=== PATIENT | female | born 1955 | race Caucasian/White ===

== ENCOUNTER 2017-10-27 10:12 | Emergency (ER) | payer BC, MEDICARE ==
[~2017-10-27] VITALS: Ht 162.6 cm; Wt 90.7 kg
[2017-10-27] MEDS ORDERED: MORPHINE SULFATE INJ 10 MG/ML IM ONE (10:30)
[2017-10-27] MEDS ORDERED: ONDANSETRON HCL 4 MG ORAL DISINTEGRATING TAB PO ONE (10:30)
[2017-10-27] MEDS ORDERED: HYDROMORPHONE 2MG/ML INJ IM ONE (11:30)
[2017-10-27] MEDS ORDERED: HYDROMORPHONE 2MG/ML INJ IV ONE (11:30)
[2017-10-27] MEDS ORDERED: PROMETHAZINE HCL (IM) 25 MG/ML VIAL IM ONE ×2 (11:45→12:30)
--- NOTE | 2017-10-27 11:50 | Diagnostic Imaging Report ---
EXAMINATION: CT of the lumbar spine and sacrococcyx HISTORY:Status post fall, trauma, pain COMPARISON:Abdomen CT on 03/07/2017 TECHNIQUE: Multidetector helical axial images were obtained without contrast from L1 to S1. The images were reconstructed using bone and soft tissue algorithms and were viewed in axial, sagittal, and coronal planes. FINDINGS: Transitional lumbosacral vertebra, for the purposes of the quadrant examination will be considered as a lumbarized S1 with a rudimentary S1-S2 disc. Alignment:Normal lumbar lordosis. Minimal retrolisthesis at L2-L3. Vertebral bodies:Minimal chronic anterior wedging of the L1 vertebral body. Chronic endplate degenerative changes at L5-S1. Paraspinal soft tissues: Again seen subcutaneous stimulator device in the right buttock. Intervertebral disks: L1-L2: Normal. L2-L3: Mild symmetric disc for which a catheter traverses, mild bilateral foraminal stenoses. L3-L4: Normal. L4-L5: Mild symmetric disc bulge and facet arthrosis. Minimal canal and foramina narrowing. L5-S1: Decreased disc height, symmetric disc bulge, ligamenta flava thickening and facet arthroses. Moderate bilateral foraminal stenoses. Sacrococcyx: -No acute displaced fractures. -Prominent distal angulation of the coccyx. - Minimal widening between the first and second coccygeal segments, may represent age-indeterminate minimal subluxation. IMPRESSION: 1. No acute lumbar or sacrococcygeal displaced fractures. 2. Possible minimal age-indeterminate subluxation of the first/second coccygeal segments as detail above. 3. Moderate degenerative and chronic foraminal stenosis at L5-S1. Signed by: Dr. Kristan Orosco M.D. on 10/27/2017 11:47 AM
[2017-10-27 12:39] VITALS: BP 141/91
[2017-10-27] MEDS ORDERED: ALBUTEROL0.63 MG/3 INH (16:48)
[2017-10-27] MEDS ORDERED: ALPHAGAN P5 ML OP (16:49)
[2017-10-27] MEDS ORDERED: RANITIDINE HCL150 M1 PO (16:49)
[2017-10-27] MEDS ORDERED: LATANOPROST2.5 ML OP (16:49)
[2017-10-27] MEDS ORDERED: OMEPRAZOLE40 MG PO (16:49)
[2017-10-27] MEDS ORDERED: SYNTHROID125 MCG PO (16:50)
== END 2017-10-27 13:05 | disposition home or self-care (01) ==
LOC: ER 10:12
DX: M54.5 Low back pain (principal); G89.11 Acute pain due to trauma; S30.0XXA Contusion of lower back and pelvis, initial encounter; M51.26 Other intervertebral disc displacement, lumbar region; W01.0XXA Fall on same level from slipping, tripping and stumbling without subsequent striking against object, initial encounter; Y93.01 Activity, walking, marching and hiking; Y92.238 Other place in hospital as the place of occurrence of the external cause
CPT/HCPCS: 72131; 72192; 99284; J1170; J2550

== ENCOUNTER 2017-10-31 06:18 | Observation (INO) | payer MEDICARE ==
[~2017-10-31] VITALS: Ht 162.6 cm; Wt 90.3 kg
[~2017-10-31 06:18] MED LIST: ALBUTEROL0.63 MG/3 INH; ALPHAGAN P5 ML OP; LATANOPROST2.5 ML OP; OMEPRAZOLE40 MG PO; RANITIDINE HCL150 M1 PO; SYNTHROID125 MCG PO
[2017-10-31] MEDS ORDERED: CEFAZOLIN SOD 1 GM VIAL ONE (06:31)
[2017-10-31] MEDS ORDERED: BUPIVACAINE HCL 0.5% INJ 30 ML VIAL INJ ONE (06:59)
[2017-10-31] MEDS ORDERED: MUPIROCIN 2% OINT 22 GM TUBE ONE (06:59)
[2017-10-31] MEDS ORDERED: SCOPOLAMINE 1.5 MG PATCH ONE (07:53)
[2017-10-31] MEDS ORDERED: CITRIC ACID/SODIUM CITRATE 30 ML UDC PO ONE (08:00)
[2017-10-31] MEDS ORDERED: PROMETHAZINE HCL (IM) 25 MG/ML VIAL INJ PRN (09:00)
[2017-10-31] MEDS ORDERED: SODIUM CHLORIDE 0.9% 1000ML 1,000 ML IV SCH (09:00)
[2017-10-31] MEDS ORDERED: ZOLPIDEM TARTRATE 5 MG TAB PO PRN (09:00)
[2017-10-31] MEDS ORDERED: HYDROCODONE/APAP 5MG-325MG TAB PO PRN (09:00)
[2017-10-31] MEDS ORDERED: DIPHENHYDRAMINE HCL INJ 50 MG/ML VIAL IM/IV PRN (09:00)
[2017-10-31] MEDS ORDERED: ACETAMINOPHEN 650 MG SUPP PR PRN (09:00)
[2017-10-31] MEDS: CELECOXIB 100 MG CAP PO SCH ×2 (09:00→17:00)
[2017-10-31] MEDS ORDERED: DOCUSATE SODIUM 100 MG CAP PO PRN (09:00)
[2017-10-31] MEDS ORDERED: ONDANSETRON HCL INJ 2 MG/ML VIAL IV PRN (09:00)
[2017-10-31] MEDS ORDERED: FENTANYL CITRATE/PF 100MCG/2 ML INJ ONE ×2 (09:24→18:11)
[2017-10-31] MEDS: ASPIRIN 325 MG TAB PO SCH ×2 (10:00→17:00)
[2017-10-31] MEDS: KETOROLAC TROMETHAMINE 30 MG/ML VIAL IV PRN (10:09)
--- NOTE | 2017-10-31 10:35 | Operative Report ---
DATE OF PROCEDURE: October 31, 2017 MARKET RESEARCH SENIOR PROJECT MANAGER: Ge Lucero PA-C The patient was brought to the operating room for induction of anesthesia. Throughout this case, my PA's assistance was necessary for retraction of soft tissue and positioning of the extremity. This allows for efficient and technically successful execution of the operation and is considered medically necessary. PREOPERATIVE DIAGNOSIS: Bicondylar right tibial plateau fracture. POSTOPERATIVE DIAGNOSIS: Bicondylar right tibial plateau fracture. PROCEDURE: Open reduction and internal fixation, right bicondylar tibial plateau fracture. INDICATIONS: The patient is a 62-year-old lady who fell off of a ladder. She sustained a bicondylar tibial plateau fracture. There is minimal displacement, but the fracture is considered unstable. The findings and options have been discussed. We plan on open reduction with internal fixation. The risks and benefits were explained. She stated she understood and wished to proceed. DESCRIPTION OF PROCEDURE: The patient was brought into the operating room and placed under general anesthetic. She received prophylactic antibiotics in the holding area. Her right lower extremity was prepped and draped in a sterile manner. A preoperative time out was performed. The extremity was exsanguinated, and a proximal tourniquet was inflated to 300 mmHg. A curvilinear incision was made over the proximal right leg along the line of the tibial spine and extending back towards Gerdy tubercle. The anterior compartment muscles were elevated off of the bone. The fracture lines were identified. A [employer] precontoured periarticular plate was positioned on the proximal tibia. Good position was confirmed with a C-arm image intensifier. The fracture was well reduced. The plate was affixed to the bone with a combination of compression and locking screws. Intraoperative x-rays confirmed anatomic reduction and good positioning of the hardware. The wound was thoroughly irrigated. The anterior compartment fascia was reapproximated using #0 Vicryl. The skin was closed with subcuticular Vicryl and torie. A sterile bandage and a hinged knee brace were applied. The patient was extubated and transported to the recovery room in stable condition. Blood loss was less than 50 mL, and all needle and sponge counts were correct. Job#: [id number]
[2017-10-31 11:30] VITALS: BP 165/77
[2017-10-31] MEDS: ACETAMINOPHEN 1000 MG/100 ML IV SCH ×2 (12:00→18:00)
[2017-10-31 12:30] VITALS: BP 154/85
[2017-10-31] MEDS: CEFAZOLIN SOD 1 GM/D5W 50ML 50 ML IV SCH ×2 (13:42→22:18)
[2017-10-31] MEDS ORDERED: METOCLOPRAMIDE HCL 10 MG/2ML VIAL ONE (17:51)
[2017-10-31] MEDS ORDERED: LIDOCAINE HCL 2% LOCAL INJ 5 ML SDV VIAL INJ ONE (17:51)
[2017-10-31] MEDS ORDERED: ONDANSETRON HCL INJ 2 MG/ML VIAL ONE (17:51)
[2017-10-31] MEDS ORDERED: DEXAMETHASONE SOD PHOS INJ 4 MG/ML VIAL ONE (17:51)
[2017-10-31] MEDS ORDERED: PROPOFOL IV EMULSION 10 MG/ML 20 ML VIAL ONE (17:51)
[2017-10-31] MEDS ORDERED: SEVOFLURANE INHAL SOLN 250 ML PEN BTL ONE (17:51)
[2017-10-31] MEDS ORDERED: MORPHINE SULFATE INJ 10 MG/ML ONE (18:11)
[2017-10-31] MEDS ORDERED: MIDAZOLAM HCL 2 MG/2 ML VIAL ONE (18:11)
[2017-10-31 18:37] VITALS: BP 126/67
[2017-10-31 18:39] VITALS: BP 154/85
[2017-10-31 20:00] VITALS: BP 118/66
[2017-10-31] MEDS: HYDROCODONE/APAP 7.5MG-325MG 1 EA TAB PO PRN (22:24)
[2017-11-01] VITALS: BP 132/66
--- NOTE | 2017-11-01 00:30 | Consultation ---
DATE OF CONSULTATION: October 31, 2017 REASON FOR CONSULTATION: Medical management. HISTORY OF PRESENT ILLNESS: This is a 62-year-old white woman who underwent successful right tibial plateau open reduction and internal fixation to repair a traumatic fracture. The patient states that on Saturday, October 21, 2017, she suffered a mechanical fall off a step ladder in which all of her weight landed on her right lower extremity. The patient subsequently was found to have a right tibial plateau fracture. The patient also sustained a repeat fall on October 27, 2017 that did not result in any further fractures but x-rays did reveal moderate degenerative and chronic foraminal stenosis at L5-S1, and CT of the lumbar spine without contrast did reveal moderate degeneration and chronic foraminal stenosis at L5-S1. The patient states that her pain is currently well controlled. REVIEW OF SYSTEMS: GENERAL: Weight has been stable. No fever or chills. HEENT: No headaches; no visual changes. CARDIOVASCULAR: No chest pain, no shortness of breath, no cough. GI: No nausea, vomiting, diarrhea or constipation, but she has severe GERD. : She has urinary incontinence issues. NEUROMUSCULAR: No limb weakness or numbness. She states pain in her right lower leg is well controlled, but she does complain of pain in her lower back and right hip area. PAST MEDICAL HISTORY: 1. Obesity, BMI 36. 2. Macular degeneration. 3. Glaucoma. 4. Severe GERD. 5. Hypothyroidism. 6. Overactive bladder. ALLERGIES: CODEINE CAUSES ITCHING. MEDICATIONS: 1. Omeprazole 40 mg a day. 2. Ranitidine 150 mg b.i.d. 3. Synthroid 125 mcg daily. 4. Eye drops for glaucoma. SOCIAL HISTORY: She is and lives with her . She is currently a retired hairdresser. Does not smoke tobacco. The patient drinks alcohol rarely. FAMILY HISTORY: Father suffered from alcoholism. Mother has congestive heart failure and COPD. PAST SURGICAL HISTORY: 1. Right tibial plateau open reduction and internal fixation on October 31, 2017. 2. Open cholecystectomy. 3. Gastric bypass in 1993 for gastric resection because of recurrent ulcers. 4. Exploratory laparotomy to repair abdominal wall hernia. 5. Repeat exploratory laparotomy because of an infected surgical incision wound. 6. section. 7. Hysterectomy because of uterine cancer. 8. Partial thyroidectomy twice. 9. Cervical spine surgery. 10. Bilateral carpal tunnel surgery. PHYSICAL EXAMINATION GENERAL: She is awake, alert, fully oriented. She is pleasant and cooperative with exam. VITAL SIGNS: Height 5 feet 2 1/2 inches, weight 200 pounds. BMI 36. Blood pressure 129/93. Pulse 72. Respiratory rate 18. Oxygen saturation 96% on room air. Temperature 98.0. INTEGUMENT: Skin is warm and dry. No pallor, jaundice, diaphoresis. HEENT: Anicteric sclerae with moist mucous membranes. NECK: Supple. CARDIOVASCULAR: Regular rate and rhythm. LUNGS: No rales and no rhonchi. ABDOMEN: Obese yet benign. The patient has extensive surgical incisional scarring on her abdomen. She appears to have an abdominal wall hernia at this time that is reducible. EXTREMITIES: The patient has a brace on her right lower extremity. No edema on the lower legs. NEUROLOGIC: Intact. No gross focal deficit appreciated. DIAGNOSES 1. Status post right tibial plateau open reduction and internal fixation to repair fracture. 2. Obesity. BMI of 36. 3. Hypothyroidism. 4. Gastroesophageal reflux disease. PLAN: 1. Will continue proton pump inhibitor and H2 precious for the patient's gastroesophageal reflux disease. 2. Continue Synthroid. 3. Discontinue intravenous fluids. 4. Encourage hourly incentive spirometry use from 7 a.m. to 7 p.m. 5. Mobilize with therapy. 6. Pain control. I would like to thank Dr. Patterson for this generous consult. I spent 45 minutes in the care of this patient. Job#: [id number] GH MTDD
[2017-11-01] MEDS: ACETAMINOPHEN 1000 MG/100 ML IV SCH ×2 (01:00→05:30)
[2017-11-01 04:00] VITALS: BP 146/67
[2017-11-01 05:18] LABS: BASOPHILS % 0.3 % (0.0-1.0); EOSINOPHILS % 0.3 % (0.0-6.0); LYMPHOCYTES % 21.1 % (18.0-39.1); MEAN CORPUSCULAR HEMOGLOBIN 29.7 pg (28-32); MEAN CORPUSCULAR HGB CONC 34.2 g/dL (31-35); MEAN CORPUSCULAR VOLUME 86.8 fL (81-99); MONOCYTES # (AUTO) 0.7 (0.2-0.8); MONOCYTES % 7.3 % (4.4-11.3); NEUTROPHILS # (AUTO) 6.6 (2.1-6.9); NEUTROPHILS % 70.7 % (38.7-80.0); PLATELET COUNT 341 x10e3/uL (140-360); RED BLOOD COUNT 4.38 x10e6/uL (3.6-5.1)
[2017-11-01] MEDS: CEFAZOLIN SOD 1 GM/D5W 50ML 50 ML IV SCH (05:45)
[2017-11-01 05:49] LABS: ALANINE AMINOTRANSFERASE 83 IU/L (0-55); ALBUMIN 3.2 g/dL (3.5-5.0); ALBUMIN/GLOBULIN RATIO 0.9 (0.8-2.0); ALKALINE PHOSPHATASE 184 IU/L (40-150); ANION GAP 13.6 mmol/L (8-16); BLOOD UREA NITROGEN 15 mg/dL (7-26); BUN/CREATININE RATIO 17 (6-25); CARBON DIOXIDE 26 mmol/L (22-29); CHLORIDE 109 mmol/L (98-107); EST GLOMERULAR FILTRATION RATE > 60 ML/MIN (60-); GLUCOSE 102 mg/dL (74-118); POTASSIUM 4.6 mmol/L (3.5-5.1); SODIUM 144 mmol/L (136-145)
[2017-11-01] MEDS: KETOROLAC TROMETHAMINE 30 MG/ML VIAL IV PRN (05:57)
[2017-11-01 08:12] VITALS: BP 127/60
[2017-11-01] MEDS ORDERED: ACETAMINOPHEN 1000 MG/100 ML IV PRN (09:00)
[2017-11-01] MEDS: ASPIRIN 325 MG TAB PO SCH (09:00)
[2017-11-01 12:11] VITALS: BP 148/70
[2017-11-01] MEDS: HYDROCODONE/APAP 7.5MG-325MG 1 EA TAB PO PRN (12:24)
[2017-11-01] MEDS ORDERED: CELECOXIB 200 MG CAP PO SCH (17:00)
== END 2017-11-01 14:07 | disposition home or self-care (01) ==
LOC: OR 06:18 → PACU V 09:04 → MED/SURG 09:39
PROVIDERS: ADMIT Specialist; ATTEND Specialist
DX: S82.141A Displaced bicondylar fracture of right tibia, initial encounter for closed fracture (principal); J45.909 Unspecified asthma, uncomplicated; M19.90 Unspecified osteoarthritis, unspecified site; E78.5 Hyperlipidemia, unspecified; K21.9 Gastro-esophageal reflux disease without esophagitis; E03.9 Hypothyroidism, unspecified; E66.9 Obesity, unspecified; Z68.36 Body mass index [BMI] 36.0-36.9, adult; Z88.5 Allergy status to narcotic agent
CPT/HCPCS: 27536; 36415; 76000; 80053; 85025; 93005; 97110; 97116; 97161; 97530; G0378 ×2; G8978; G8979; J0690; J1100; J1885 ×2; J2001; J2250; J2270; J2405; J2765; J7030

== ENCOUNTER → 2019-06-14 | Outpatient (CLI) | payer MEDICARE ==
--- NOTE | 2019-06-14 10:50 | Diagnostic Imaging Report ---
Exam: Head CT without contrast History: Memory loss Comparison studies: None Technique: Axial images were obtained from the skull base to the vertex. Coronal and sagittal images reconstructed from the axial data. Dose modulation, iterative reconstruction, and/or weight based adjustment of the mA/kV was utilized to reduce the radiation dose to as low as reasonably achievable. Radiation dose: Total DLP: 832.18 mGy*cm. Estimated effective dose: DLP x 0.015 Intravenous contrast: None Findings: Scalp: No abnormalities. Bones: No fractures, blastic or lytic lesions. Brain sulci: Appropriate for age. Ventricles: Normal in size and configuration. No hydrocephalus. Extra-axial spaces: No masses, no fluid collection. Parenchyma: No abnormal densities. No masses, acute hemorrhage, acute or chronic vascular insults. Normal brain volume for age. No disproportionate lobar or hippocampal atrophy. Sellar/suprasellar region: No abnormalities. Craniocervical junction: Patent foramen magnum. No Chiari one malformation. Middle ear mastoid cavities: Clear. Included paranasal sinuses: Clear. Incidental findings: Bilateral intraocular lens replacements. IMPRESSION: No intracranial abnormalities. Signed by: Dr. Fabrice Millard M.D. on 06/14/2019 10:47 AM
== END ==
LOC: CT 10:03
PROVIDERS: ATTEND Psychiatry & Neurology Neurology
DX: R41.3 Other amnesia (principal)
CPT/HCPCS: 70450

== ENCOUNTER → 2019-10-23 | Emergency (ER) | payer MEDICARE ==
[~2019-10-23] VITALS: Ht 162.6 cm; Wt 90.3 kg
[~2019-10-23] MED LIST changes: +ACETAMINOPHEN 325 MG TAB PO ONE
--- NOTE | 2019-10-23 22:03 | Emergency Department Note ---
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 STATES SYMPTOMS ARE NOT NECESSARILY WORSE SHE IS JUST TIRED OF BEING SICK, SHE HAS NOT BEEN ON Z ITHROMAX OF YET . Arrival Mode: Car Onset (how long ago): day(s) (10) Location: ALL OVER Quality: BODY ACHES, FEVER, DRY COUGH Radiation: Reports non-radiation Severity: moderate Onset quality: gradual Duration (how long): day(s) (10) Progression: waxing and waning Chronicity: new Context: Reports recent illness (POSITIVE FOR COVID 19) Relieving factors: none Exacerbating factors: none Associated symptoms: Reports cough, Reports fever/chills, Reports nausea/vomiting, Reports shortness of breath Treatments prior to arrival: antipyretic (LSAT DOES OF TYLENOL AT 1400 TODAY) Past Medical/Family History Physician Review I have reviewed the patient's past medical and family history. Any updates have been documented here. Past Medical History Recent Fever: Yes Clinical Suspicion of Infectio: Yes New/Unexplained Change in Ment: No Past Medical History: Hypothyroidism Other Medical History: BLADDER STIMULATOR R/TIB/FIB FX Past Surgical History: None Social History Smoking Cessation: Never Smoker Alcohol Use: None Any Illegal Drug Use: No Family History Family history of heart diseas: No Other Last Tetanus: OUT OD DATE Review of Systems Review of Systems Constitutional: Reports as per HPI EENTM: Reports no symptoms Cardiovascular: Reports no symptoms Respiratory: Reports as per HPI Gastrointestinal: Reports as per HPI Genitourinary: Reports no symptoms Musculoskeletal: Reports no symptoms Integumentary: Reports no symptoms Neurological: Reports no symptoms Psychological: Reports no symptoms Endocrine: Reports no symptoms Hematological/Lymphatic: Reports no symptoms Physical Exam Related Data Allergies: Coded Allergies: codeine (Verified Allergy, Unknown, 10/27/17) Triage Vital Signs Vital Signs Date Time Temp Pulse Resp B/P (MAP) Pulse Ox O2 Delivery O2 Flow Rate FiO2 10/23/19 21:39 101.5 88 22 119/91 94 Room Air Vital signs reviewed: Yes Physical Exam CONSTITUTIONAL Constitutional: Present well-developed, Present well-nourished HENT HENT: Present normocephalic, Present atraumatic, Present oropharynx clear/moist, Present nose normal HENT L/R: Present left ext ear normal, Present right ext ear normal EYES Eyes: Reports PERRL, Reports conjunctivae normal NECK Neck: Present ROM normal PULMONARY Pulmonary: Present effort normal, Present rhonchi (AT BASES BILATERAL) CARDIOVASCULAR Cardiovascular: Present regular rhythm, Present heart sounds normal, Present capillary refill normal, Present normal rate GASTROINTESTINAL Abdominal: Present soft, Present nontender, Present bowel sounds normal GENITOURINARY Genitourinary: Present exam deferred SKIN Skin: Present warm, Present dry MUSCULOSKELETAL Musculoskeletal: Present ROM normal NEUROLOGICAL Neurological: Present alert, Present oriented x 3, Present no gross motor or sensory deficits PSYCHOLOGICAL Psychological: Present mood/affect normal, Present judgement normal Results Imaging Imaging results reviewed: Yes Impressions Procedure: [id number] DX/CHEST SINGLE (PORTABLE) Exam Date: Exam Time: REPORT STATUS: Signed EXAMINATION: CHEST SINGLE (PORTABLE) INDICATION: Fever, cough, positive: COMPARISON: Abdominal CT 03/07/2017 FINDINGS: TUBES and LINES: None. LUNGS: Normal lung volumes. Mild central bronchial wall thickening. Subtle infrahilar and left midlung haziness. PLEURA: No pleural effusion or pneumothorax. HEART AND MEDIASTINUM: The cardiomediastinal silhouette is unremarkable. BONES AND SOFT TISSUES: Cervical fixation hardware. No acute osseous lesion. Soft tissues are unremarkable. UPPER ABDOMEN: No free air under the diaphragm. IMPRESSION: Findings of bronchitis and probably viral pneumonia. Signed by: Steven Gupta DO on 10/24/2019 12:05 AM Assessment & Plan Medical Decision Making MDM PT WITH POSITIVE COVID 19 TEST, WITH FEVER, COUGH, CHILLS CXR ODERED TO EVAL EXTENT OF VIRAL PNEUMONIA, PT OXYGEN SATURATION ON ROOM AIR IS 98% AND RR IS 22, PT DOES NOT APPEAR TO NEED HOSPITALIZATION PT DISCHARGED WITH Z PACK AND MEDROL DOSE PACK, INSTRUCTED TO QUARANTINE FOR 14 MORE DAYS, INSTRUCTED TO SLEEP ON HER STOMACH OR SIDE AND TO AVOID LAYING ON HER BACK. Reassessment Reassessment time: 01:27 Reassessment PT TEMP NOW 98.8 OXYGEN SATURATION 97 % ON ROOM AIR, NO RESPIRATORY DISTRESS. Assessment & Plan Final Impression: (1) COVID-19 (2) Viral pneumonia Depart Disposition: HOME, SELF-CARE Last Vital Signs Date Time Temp Pulse Resp B/P (MAP) Pulse Ox O2 Delivery O2 Flow Rate FiO2 10/23/19 21:39 101.5 88 22 119/91 94 Room Air Home Meds Reported Medications Levothyroxine Sodium (SYNTHROID) 125 Mcg Tab, 125 MCG PO 0630, #30 TAB 10/27/17 Omeprazole (OMEPRAZOLE) 40 Mg Capsule.dr, 40 MG PO DAILY 10/27/17 Ranitidine Hcl (RANITIDINE HCL) 150 Mg Capsule, 150 MG PO DAILY 10/27/17 Brimonidine Tartrate (ALPHAGAN P) 5 Ml Drops, OP DAILY 10/27/17 Latanoprost (LATANOPROST) 2.5 Ml Drops, 2.5 ML OP DAILY, BOTTLE 10/27/17 Albuterol Sulfate (ALBUTEROL SULFATE) 0.63 Mg/3 Ml Vial.neb, INH PRN 10/27/17 Medications in the ED Acetaminophen 650 mg ONCE ONCE PO Last administered on 10/23/19at 21:52; Admin Dose 650 MG; Start 10/23/19 at 21:45; Stop 10/23/19 at 21:54; Status DC RAFFI WHITAKER MD Oct 23, 2019 22:03
--- NOTE | 2019-10-24 00:08 | Diagnostic Imaging Report ---
EXAMINATION: CHEST SINGLE (PORTABLE) INDICATION: Fever, cough, positive: COMPARISON: Abdominal CT 03/07/2017 FINDINGS: TUBES and LINES: None. LUNGS: Normal lung volumes. Mild central bronchial wall thickening. Subtle infrahilar and left midlung haziness. PLEURA: No pleural effusion or pneumothorax. HEART AND MEDIASTINUM: The cardiomediastinal silhouette is unremarkable. BONES AND SOFT TISSUES: Cervical fixation hardware. No acute osseous lesion. Soft tissues are unremarkable. UPPER ABDOMEN: No free air under the diaphragm. IMPRESSION: Findings of bronchitis and probably viral pneumonia. Signed by: Steven Gupta DO on 10/24/2019 12:05 AM
[2019-10-24 01:32] VITALS: BP 103/64
== END | disposition home or self-care (01) ==
LOC: ER 21:50
DX: U07.1 COVID-19 (principal); J18.9 Pneumonia, unspecified organism; R50.9 Fever, unspecified; R05 Cough; R11.2 Nausea with vomiting, unspecified; R51 Headache; E03.9 Hypothyroidism, unspecified
CPT/HCPCS: 71045

== ENCOUNTER → 2020-05-07 | Day surgery (SDC) | payer MEDICARE ==
[2020-05-04 07:01] LABS: BASOPHILS # (AUTO) 0.1 (0.0-0.1); BASOPHILS % 0.9 % (0.0-1.0); EOSINOPHILS # (AUTO) 0.2 (0.0-0.4); EOSINOPHILS % 3.8 % (0.0-6.0); HEMATOCRIT 44.8 % (34.2-44.1); HEMOGLOBIN 15.1 g/dL (12.0-16.0); LYMPHOCYTES # (AUTO) 1.6 (1.0-3.2); LYMPHOCYTES % 28.3 % (18.0-39.1); MEAN CORPUSCULAR HEMOGLOBIN 29.2 pg (28-32); MEAN CORPUSCULAR HGB CONC 33.7 g/dL (31-35); MEAN CORPUSCULAR VOLUME 86.5 fL (81-99); MONOCYTES # (AUTO) 0.5 (0.2-0.8); MONOCYTES % 8.5 % (4.4-11.3); NEUTROPHILS # (AUTO) 3.4 (2.1-6.9); NEUTROPHILS % 58.3 % (38.7-80.0); PLATELET COUNT 275 x10e3/uL (140-360); RED BLOOD COUNT 5.18 x10e6/uL (3.6-5.1); RED CELL DISTRIBUTION WIDTH 13.6 % (11.7-14.4)
[2020-05-04 07:17] LABS: ANION GAP 12.5 mmol/L (8-16); CALCIUM 8.5 mg/dL (8.4-10.2); CREATININE, SERUM 1.07 mg/dL (0.57-1.11); POTASSIUM 3.5 mmol/L (3.5-5.1)
[~2020-05-07] MED LIST changes: -ACETAMINOPHEN 325 MG TAB PO ONE; +ARNUITY ELLIP200 MCG INH; +BUPROPION HCL100 MG PO; +CEFTRIAXONE SOD 1 GM/NS 50 ML 50 ML IV ONE; +FAMOTIDINE20 MG PO; +HYDROCHLOROTHIA25 MG PO; +LIDOCAINE HCL 2% LOCAL INJ 5 ML SDV VIAL INJ ONE; +ONDANSETRON HCL INJ 2MG/ML 2ML 2 MG/ML VIAL ONE; +POTASSIUM PO; +PROPOFOL IV EMULSION 10 MG/ML 20 ML VIAL ONE
[2020-05-07 07:55] VITALS: BP 103/71
== END | disposition home or self-care (01) ==
LOC: OR 06:27
PROVIDERS: ATTEND Urology
DX: N39.0 Urinary tract infection, site not specified (principal); G47.33 Obstructive sleep apnea (adult) (pediatric); I10 Essential (primary) hypertension; R00.1 Bradycardia, unspecified; K21.9 Gastro-esophageal reflux disease without esophagitis; E03.9 Hypothyroidism, unspecified; J45.909 Unspecified asthma, uncomplicated; M54.2 Cervicalgia; M54.9 Dorsalgia, unspecified; Z88.6 Allergy status to analgesic agent; Z01.810 Encounter for preprocedural cardiovascular examination; Z01.812 Encounter for preprocedural laboratory examination; Z01.818 Encounter for other preprocedural examination; Z20.822 Contact with and (suspected) exposure to COVID-19; Z87.01 Personal history of pneumonia (recurrent)
CPT/HCPCS: 36415; 52000; 71046; 80048; 85025; 93005; J0696; J2001; J2405; J2704; U0002

== ENCOUNTER 2021-01-20 09:05 | Emergency (ER) | payer MEDICARE ==
[~2021-01-20] VITALS: Ht 162.6 cm; Wt 90.3 kg
[~2021-01-20 09:05] MED LIST changes: -CEFTRIAXONE SOD 1 GM/NS 50 ML 50 ML IV ONE; -LIDOCAINE HCL 2% LOCAL INJ 5 ML SDV VIAL INJ ONE; -ONDANSETRON HCL INJ 2MG/ML 2ML 2 MG/ML VIAL ONE; -PROPOFOL IV EMULSION 10 MG/ML 20 ML VIAL ONE
[2021-01-20] MEDS ORDERED: METRONIDAZOLE 500MG/NS 100ML 100 ML IV STA (09:14)
[2021-01-20] MEDS ORDERED: TRAMADOL HCL 50 MG TAB PO STA (09:14)
[2021-01-20] MEDS ORDERED: ONDANSETRON HCL INJ 2MG/ML 2ML 2 MG/ML VIAL IV STA (09:14)
[2021-01-20] MEDS ORDERED: SODIUM CHLORIDE 0.9% 1000ML 1,000 ML IV STA (09:14)
[2021-01-20] MEDS ORDERED: SODIUM CHLORIDE 0.9% 50ML 50 ML ONE (09:30)
[2021-01-20] MEDS ORDERED: IOPAMIDOL 370 MG/ML 200 ML INFUS..BTL INJ ONE (09:30)
[2021-01-20] MEDS ORDERED: SODIUM CHLORIDE 0.9% 1000ML 1,000 ML ONE (09:36)
[2021-01-20] MEDS ORDERED: TRAMADOL HCL 50 MG TAB PO ONE (10:30)
[2021-01-20] MEDS ORDERED: CIPRO500 MG PO (11:47)
[2021-01-20] MEDS ORDERED: FLAGYL500 MG PO (11:47)
[2021-01-20] MEDS ORDERED: ONDANSETRON ODT4 MG PO (11:47)
[2021-01-20] MEDS ORDERED: TRAMADOL HCL100 MG PO (11:47)
== END 2021-01-20 11:53 | disposition home or self-care (01) ==
LOC: FSED 09:16
DX: R10.32 Left lower quadrant pain (principal); K57.32 Diverticulitis of large intestine without perforation or abscess without bleeding; N28.1 Cyst of kidney, acquired; K76.0 Fatty (change of) liver, not elsewhere classified; E03.9 Hypothyroidism, unspecified
CPT/HCPCS: 74177; 99284; J2405; J7030; Q9967

== ENCOUNTER → 2021-03-16 | Day surgery (SDC) | payer MEDICARE ==
[~2021-03-16] MED LIST changes: +ALBUTEROL0.63 MG/3 NEB; +CIPRO500 MG PO; +DEXAMETHASONE SOD PHOS 10 MG/1 ML VIAL ONE; +EPINEPHRINE HCL 1:1000 1ML 1 MG/ML AMP ONE; +FENTANYL CITRATE/PF 100MCG/2 ML INJ ONE; +FLAGYL500 MG PO; +GLYCOPYRROLATE INJ 0.2 MG/ML VIAL ONE; +LIDOCAINE 1% W/EPINEPHRINE 20 ML VIAL ONE; +LIDOCAINE HCL 2% LOCAL INJ 5 ML SDV VIAL INJ ONE; +LINZESS145 MCG PO; +METOCLOPRAMIDE H5 MG PO; +METOCLOPRAMIDE HCL 10 MG/2ML VIAL ONE; +MIDAZOLAM HCL 2 MG/2 ML VIAL ONE; +NEOSTIGMINE 1 MG/ML 10ML VIAL ONE; +ONDANSETRON HCL INJ 2MG/ML 2ML 2 MG/ML VIAL ONE; +ONDANSETRON ODT4 MG PO; +POVIDONE IODINE 0.05% 0.05 % ML PO ONE; +PROMETHAZINE HCL (IM) 25 MG/ML VIAL IM ONE; +PROPOFOL IV EMULSION 10 MG/ML 20 ML VIAL ONE; +PROVENTIL HFA6.7 GM INH; +ROCURONIUM BROMIDE 10 MG/ML 5ML VIAL IV ONE; +SEVOFLURANE INHAL SOLN 250 ML PEN BTL ONE; +TRAMADOL HCL100 MG PO; +ZOFRAN4 MG PO
[2021-03-16 11:45] VITALS: BP 128/82
== END | disposition home or self-care (01) ==
LOC: OR 06:20
PROVIDERS: ATTEND Otolaryngology Otolaryngology/Facial Plastic Surgery
DX: J32.2 Chronic ethmoidal sinusitis (principal); J32.0 Chronic maxillary sinusitis; J32.3 Chronic sphenoidal sinusitis; J34.89 Other specified disorders of nose and nasal sinuses; J34.2 Deviated nasal septum; G47.33 Obstructive sleep apnea (adult) (pediatric); J45.909 Unspecified asthma, uncomplicated; I10 Essential (primary) hypertension; E03.9 Hypothyroidism, unspecified; K44.9 Diaphragmatic hernia without obstruction or gangrene; K21.9 Gastro-esophageal reflux disease without esophagitis; F41.9 Anxiety disorder, unspecified; F32.A Depression, unspecified; Z88.6 Allergy status to analgesic agent; Z01.812 Encounter for preprocedural laboratory examination; Z20.822 Contact with and (suspected) exposure to COVID-19; Z79.899 Other long term (current) drug therapy
CPT/HCPCS: 31240; 31259; 31267; 36415; 84132; 88304; J0171; J1100; J2001; J2250; J2405; J2550; J2704; J2710; J2765; J3010; U0002

== ENCOUNTER 2021-05-18 06:55 | Observation (INO) | payer MEDICARE ==
[~2021-05-18] VITALS: Ht 162.6 cm; Wt 92.5 kg
[~2021-05-18 06:55] MED LIST changes: -DEXAMETHASONE SOD PHOS 10 MG/1 ML VIAL ONE; -EPINEPHRINE HCL 1:1000 1ML 1 MG/ML AMP ONE; -FENTANYL CITRATE/PF 100MCG/2 ML INJ ONE; -GLYCOPYRROLATE INJ 0.2 MG/ML VIAL ONE; -LIDOCAINE 1% W/EPINEPHRINE 20 ML VIAL ONE; +LIDOCAINE 2%/ EPINEPHRINE 20ML MDV ONE; -LIDOCAINE HCL 2% LOCAL INJ 5 ML SDV VIAL INJ ONE; -METOCLOPRAMIDE HCL 10 MG/2ML VIAL ONE; -MIDAZOLAM HCL 2 MG/2 ML VIAL ONE; -NEOSTIGMINE 1 MG/ML 10ML VIAL ONE; -ONDANSETRON HCL INJ 2MG/ML 2ML 2 MG/ML VIAL ONE; -POVIDONE IODINE 0.05% 0.05 % ML PO ONE; -PROMETHAZINE HCL (IM) 25 MG/ML VIAL IM ONE; -PROPOFOL IV EMULSION 10 MG/ML 20 ML VIAL ONE; -ROCURONIUM BROMIDE 10 MG/ML 5ML VIAL IV ONE; -SEVOFLURANE INHAL SOLN 250 ML PEN BTL ONE
[2021-05-18] MEDS ORDERED: SCOPOLAMINE 1.5 MG PATCH ONE (07:40)
[2021-05-18] MEDS ORDERED: PROMETHAZINE 25MG/ NS 50ML (IV) IV PRN (09:45)
[2021-05-18] MEDS ORDERED: ONDANSETRON HCL INJ 2MG/ML 2ML 2 MG/ML VIAL ONE ×2 (10:12→12:24)
[2021-05-18] MEDS ORDERED: PROMETHAZINE HCL (IM) 25 MG/ML VIAL IM ONE (10:21)
[2021-05-18 10:55] VITALS: BP 150/99
[2021-05-18 11:02] VITALS: BP 150/99
[2021-05-18 12:17] VITALS: BP 138/90
[2021-05-18] MEDS ORDERED: SEVOFLURANE INHAL SOLN 250 ML PEN BTL ONE (12:24)
[2021-05-18] MEDS ORDERED: NEOSTIGMINE 1 MG/ML 10ML VIAL ONE (12:24)
[2021-05-18] MEDS ORDERED: GLYCOPYRROLATE INJ 0.2 MG/ML VIAL ONE (12:24)
[2021-05-18] MEDS ORDERED: ALBUTEROL SULFATE HFA 8GM INHALATION AEROSOL INH ONE (12:24)
[2021-05-18] MEDS ORDERED: LIDOCAINE HCL 2% LOCAL INJ 5 ML SDV VIAL INJ ONE (12:24)
[2021-05-18] MEDS ORDERED: POVIDONE IODINE 0.05% 0.05 % ML PO ONE (12:24)
[2021-05-18] MEDS ORDERED: ROCURONIUM BROMIDE 10 MG/ML 5ML VIAL IV ONE (12:24)
[2021-05-18] MEDS ORDERED: DEXAMETHASONE SOD PHOS INJ 4 MG/ML SDV ONE (12:24)
[2021-05-18] MEDS ORDERED: PROPOFOL IV EMULSION 10 MG/ML 20 ML VIAL ONE (12:24)
[2021-05-18] MEDS ORDERED: FENTANYL CITRATE/PF 100MCG/2 ML INJ ONE (13:33)
[2021-05-18] MEDS ORDERED: MIDAZOLAM HCL 2 MG/2 ML VIAL ONE (13:33)
[2021-05-18] MEDS: MEPERIDINE HCL INJ 25 MG/ML VIAL IV PRN ×2 (13:40→21:02)
[2021-05-18] MEDS: LACTATED RINGER'S 1,000 ML INJ SCH (15:11)
[2021-05-18 15:52] VITALS: BP 123/74
[2021-05-18] MEDS: ALBUTEROL SULF 0.083% NEB SOLN 3 ML NEB NEB PRN ×2 (17:17→20:55)
[2021-05-18 20:00] VITALS: BP 118/72
[2021-05-18] MEDS: PANTOPRAZOLE SOD 40 MG TABEC PO SCH (20:53)
[2021-05-19] VITALS: BP 95/64
[2021-05-19] MEDS: LACTATED RINGER'S 1,000 ML INJ SCH ×2 (01:30→07:42)
[2021-05-19 04:00] VITALS: BP 112/65
[2021-05-19] MEDS ORDERED: LEVOTHYROXINE SODIUM 125 MCG TAB PO SCH (06:30)
[2021-05-19] MEDS: MEPERIDINE HCL INJ 25 MG/ML VIAL IV PRN ×2 (06:30→12:10)
[2021-05-19 08:07] VITALS: BP 114/73
[2021-05-19] MEDS: PANTOPRAZOLE SOD 40 MG TABEC PO SCH (09:00)
[2021-05-19] MEDS ORDERED: HYDROCHLOROTHIAZIDE 25 MG TAB PO SCH (09:00)
[2021-05-19] MEDS: ALBUTEROL SULF 0.083% NEB SOLN 3 ML NEB NEB PRN ×2 (11:18→16:08)
[2021-05-19 11:26] VITALS: BP 114/73
[2021-05-19 11:54] VITALS: BP 129/77
[2021-05-19 17:11] VITALS: BP 128/71
== END 2021-05-19 18:09 | disposition home or self-care (01) ==
LOC: OR 06:55 → PACU V 09:18 → MED/SURG 10:55
PROVIDERS: ADMIT Otolaryngology Otolaryngology/Facial Plastic Surgery; ATTEND Otolaryngology Otolaryngology/Facial Plastic Surgery
DX: G47.33 Obstructive sleep apnea (adult) (pediatric) (principal); J35.1 Hypertrophy of tonsils; A42.89 Other forms of actinomycosis; J45.909 Unspecified asthma, uncomplicated; I10 Essential (primary) hypertension; E03.9 Hypothyroidism, unspecified; K44.9 Diaphragmatic hernia without obstruction or gangrene; M19.90 Unspecified osteoarthritis, unspecified site; Z88.6 Allergy status to analgesic agent; Z01.812 Encounter for preprocedural laboratory examination; Z20.822 Contact with and (suspected) exposure to COVID-19; Z79.899 Other long term (current) drug therapy
CPT/HCPCS: 42145; 88304; 94640 ×3; 94799 ×2; G0378 ×2; J1100; J2001 ×2; J2175 ×2; J2250; J2405; J2550; J2704; J2710; J3010; J7121 ×2; S0164 ×2; U0002; 88302

== ENCOUNTER 2021-05-20 15:53 | Observation (INO) | payer MEDICARE ==
[~2021-05-20] VITALS: Ht 162.6 cm; Wt 181.4 kg
[~2021-05-20 15:53] MED LIST changes: -LIDOCAINE 2%/ EPINEPHRINE 20ML MDV ONE
[2021-05-20] MEDS ORDERED: SODIUM CHLORIDE 0.9% 1000ML 1,000 ML IV ONE (16:30)
[2021-05-20 16:41] LABS: BASOPHILS # (AUTO) 0.1 (0.0-0.1); BASOPHILS % 0.7 % (0.0-1.0); EOSINOPHILS # (AUTO) 0.4 (0.0-0.4); EOSINOPHILS % 4.1 % (0.0-6.0); HEMATOCRIT 41.8 % (34.2-44.1); HEMOGLOBIN 13.2 g/dL (12.0-16.0); LYMPHOCYTES # (AUTO) 1.8 (1.0-3.2); LYMPHOCYTES % 20.2 % (18.0-39.1); MEAN CORPUSCULAR HEMOGLOBIN 28.7 pg (28-32); MEAN CORPUSCULAR HGB CONC 31.6 g/dL (31-35); MEAN CORPUSCULAR VOLUME 90.9 fL (81-99); MONOCYTES # (AUTO) 0.7 (0.2-0.8); MONOCYTES % 8.2 % (4.4-11.3); NEUTROPHILS % 66.5 % (38.7-80.0); PLATELET COUNT 265 x10e3/uL (140-360); RED CELL DISTRIBUTION WIDTH 13.4 % (11.7-14.4)
[2021-05-20] MEDS ORDERED: Morphine 4mg Syringe 4 MG/ML INJ IV PRN (18:30)
[2021-05-20] MEDS ORDERED: HYDROCODONE BIT/ACETAMINOPHEN 2.5 MG/108MG PER 5 ML SOLUTION PO PRN ×2 (19:30→22:00)
[2021-05-20] MEDS ORDERED: ALBUTEROL/IPRATROPIUM 3 ML NEB NEB ONE (20:30)
[2021-05-20] MEDS ORDERED: ALBUTEROL/IPRATROPIUM 3 ML NEB ONE (20:35)
[2021-05-20] MEDS ORDERED: METHYLPREDNISOLONE SOD SUCC 40 MG/ML VIAL 1ML ONE (20:39)
[2021-05-20 20:45] VITALS: BP 124/76
[2021-05-20] MEDS: ONDANSETRON HCL INJ 2MG/ML 2ML 2 MG/ML VIAL IV PRN (20:45)
[2021-05-20] MEDS: METHYLPREDNISOLONE SOD SUCC 40 MG/ML VIAL 1ML IV SCH (20:45)
[2021-05-20] MEDS ORDERED: MEPERIDINE HCL INJ 25 MG/ML VIAL IV PRN (22:00)
[2021-05-20] MEDS ORDERED: LACTATED RINGER'S 1,000 ML INJ ONE (22:00)
[2021-05-21] VITALS: BP 113/67
[2021-05-21] MEDS: AMOXICILLIN 250 MG CAP PO SCH ×2 (00:15→06:00)
[2021-05-21] MEDS: ALBUTEROL/IPRATROPIUM 3 ML NEB NEB SCH ×3 (00:55→13:04)
[2021-05-21] MEDS: ONDANSETRON HCL INJ 2MG/ML 2ML 2 MG/ML VIAL IV PRN (03:24)
[2021-05-21 04:00] VITALS: BP 128/64
[2021-05-21 05:58] LABS: BASOPHILS % 0.4 % (0.0-1.0); EOSINOPHILS # (AUTO) 0.1 (0.0-0.4); EOSINOPHILS % 0.8 % (0.0-6.0); HEMATOCRIT 38.6 % (34.2-44.1); HEMOGLOBIN 12.3 g/dL (12.0-16.0); LYMPHOCYTES # (AUTO) 1.6 (1.0-3.2); LYMPHOCYTES % 16.2 % (18.0-39.1); MEAN CORPUSCULAR HEMOGLOBIN 28.7 pg (28-32); MEAN CORPUSCULAR HGB CONC 31.9 g/dL (31-35); MONOCYTES # (AUTO) 0.5 (0.2-0.8); MONOCYTES % 5.2 % (4.4-11.3); NEUTROPHILS # (AUTO) 7.4 (2.1-6.9); PLATELET COUNT 267 x10e3/uL (140-360); RED BLOOD COUNT 4.29 x10e6/uL (3.6-5.1); RED CELL DISTRIBUTION WIDTH 13.2 % (11.7-14.4)
[2021-05-21 06:19] LABS: ALBUMIN 3.2 g/dL (3.5-5.0); ALBUMIN/GLOBULIN RATIO 0.9 (0.8-2.0); ANION GAP 14.6 mmol/L (8-16); CALCIUM 8.4 mg/dL (8.4-10.2); CREATININE, SERUM 0.78 mg/dL (0.57-1.11); POTASSIUM 3.6 mmol/L (3.5-5.1)
[2021-05-21] MEDS ORDERED: AMOXICILLIN SUSP 250 MG/5 ML SUSP PO SCH (08:00)
[2021-05-21] MEDS: METHYLPREDNISOLONE SOD SUCC 40 MG/ML VIAL 1ML IV SCH (08:34)
[2021-05-21 08:43] VITALS: BP 111/66
[2021-05-21 09:02] VITALS: BP 111/66
[2021-05-21 12:00] VITALS: BP 121/85
== END 2021-05-21 14:20 | disposition home or self-care (01) ==
LOC: ER 16:03 → ERHOLD 18:24 → MED/SURG 21:24
PROVIDERS: ADMIT Otolaryngology Otolaryngology/Facial Plastic Surgery; ATTEND Otolaryngology Otolaryngology/Facial Plastic Surgery
DX: J95.830 Postprocedural hemorrhage of a respiratory system organ or structure following a respiratory system procedure (principal); G47.33 Obstructive sleep apnea (adult) (pediatric); R04.2 Hemoptysis; Z88.5 Allergy status to narcotic agent; J45.901 Unspecified asthma with (acute) exacerbation; Z20.822 Contact with and (suspected) exposure to COVID-19
CPT/HCPCS: 36415 ×2; 80053; 85025 ×2; 94640; 94799 ×2; 99284; G0378 ×2; J2270; J2405 ×2; J2920 ×2; J7030; J7121; U0002

== ENCOUNTER → 2021-08-24 | Outpatient (CLI) | payer MEDICARE | LOC: CT 07:29 | PROVIDERS: ATTEND Internal Medicine | DX: R06.09 Other forms of dyspnea (principal) | CPT/HCPCS: 71250 ==

== ENCOUNTER → 2021-09-08 | Outpatient (CLI) | payer MEDICARE ==
[~2021-09-08] MED LIST changes: +GADOBENATE DIMEGLUMINE 1 ML IV ONE
[2021-09-08 08:10] LABS: CREATININE, SERUM 0.98 mg/dL (0.57-1.11)
== END ==
LOC: MRI 06:57
PROVIDERS: ATTEND Otolaryngology Otolaryngology/Facial Plastic Surgery
DX: H90.3 Sensorineural hearing loss, bilateral (principal); H93.19 Tinnitus, unspecified ear
CPT/HCPCS: 36415; 70553; 82565; 84520; A9577

== ENCOUNTER 2022-05-01 11:00 | Emergency (ER) | payer MEDICARE ==
[~2022-05-01] VITALS: Ht 162.6 cm; Wt 90.7 kg
[~2022-05-01 11:00] MED LIST changes: -GADOBENATE DIMEGLUMINE 1 ML IV ONE
[2022-05-01] MEDS ORDERED: KETOROLAC TROMETHAMINE 30 MG/ML VIAL IM STA (11:37)
[2022-05-01] MEDS ORDERED: DEXAMETHASONE SOD PHOS 10 MG/1 ML VIAL IM ONE ×2 (11:45)
[2022-05-01] MEDS ORDERED: DEXAMETHASONE SOD PHOS INJ 4 MG/ML SDV ONE (11:53)
[2022-05-01] MEDS ORDERED: KETOROLAC TROMETHAMINE 60 MG/2 ML VIAL ONE (11:54)
[2022-05-01] MEDS ORDERED: IBUPROFEN400 MG PO (11:55)
[2022-05-01] MEDS ORDERED: PREDNISONE50 MG PO (11:55)
== END 2022-05-01 12:12 | disposition home or self-care (01) ==
LOC: FSED 11:38
DX: M54.50 Low back pain, unspecified (principal); G89.29 Other chronic pain; I10 Essential (primary) hypertension; E03.9 Hypothyroidism, unspecified; K21.9 Gastro-esophageal reflux disease without esophagitis; F41.9 Anxiety disorder, unspecified
CPT/HCPCS: 96372; 99282; J1100 ×2; J1885